=== PATIENT | female | born 1980 | race Caucasian/White ===

== ENCOUNTER → 2016-10-19 | Outpatient (CLI) | payer BC ==
[~2016-10-19] MED LIST: ACET-1311; CALC500C3; PRENTAB26
== END | disposition home or self-care (01) ==
LOC: C.PAPS 09:36
PROVIDERS: ATTEND Obstetrics & Gynecology
DX: Z01.419 Encounter for gynecological examination (general) (routine) without abnormal findings (principal)

== ENCOUNTER → 2016-10-27 | Outpatient (CLI) | payer BC ==
--- NOTE | 2016-10-27 12:25 | MAMMOGRAPHY REPORT ---
BILATERAL DIGITAL DIAGNOSTIC MAMMOGRAM TOMOSYNTHESIS WITH CAD AND TARGETED RIGHT ULTRASOUND: 10/27/2016 CLINICAL HISTORY: The patient reports she had 3 adjacent nodules in the right axillary region approxi mately 1.5 months ago. She was placed on 2 rounds of antibiotics and 2 of the nodules resolved, lott andrés, one nodule still persists. The area is intermittently painful. She denies any skin erythema in the region. She has a history of a prior left axillary abscess. TECHNIQUE: Breast tomosynthesis in addition to standard 2D mammography was performed. Current study was also evaluated with a Computer Aided Detection (CAD) system. Bilateral CC and MLO 2-D and tomosy nthesis images were obtained. Right X CCM and right X CCL 2-D images were also obtained. COMPARISON: No prior exams were available for comparison. BREAST COMPOSITION: There are scattered areas of fibroglandular density in both breasts. FINDINGS: A triangle marker partially visualized within the right axillary region mccallum the palpable lump pointed out by the patient. There are no suspicious masses, calcifications, or areas of idris ectural distortion noted within either breast. A few scattered punctate/round benign-appearing calci fications are seen within the right breast. Targeted ultrasound was performed of the area of the palpable lump pointed out by the patient in the right axillary region. At the site of the palpable lump there is an ill-defined elongated hypoechoic region in the dermal/subdermal region, measuring 21 x 2 mm. Findings are benign and may represent a resolving sebaceous cyst or other process involving the skin. No focal fluid collection is evident to suggest abscess. IMPRESSION: ACR BI-RADS CATEGORY 2: BENIGN, TARGETED ULTRASOUND ACR BI-RADS CATEGORY 2: BENIGN Ill-defined elongated hypoechoic 21 x 2 mm region at the site of the palpable lump in the right axill a. This is located in the dermal/subdermal region and is benign and may represent a resolving sebace ous cyst or other skin process. No focal fluid collection to suggest abscess is seen. There is no m ammographic or targeted sonographic evidence of malignancy. Recommend clinical follow-up for the rig ht axillary palpable lump, and recommend routine bilateral screening mammograms starting at age of 40 unless otherwise clinically indicated. The patient has been verbally notified of the results. Approximately 10% of breast cancers are not detected with mammography. A negative mammographic report should not delay biopsy if a clinically suggestive mass is present. Latisha Sue M.D. ah/:10/27/2016 11:51:46 Emergency Dept Tech: Lashonda RENEE(Shirley)(M), [facility] letter sent: Normal 1/2 BI-RADS Code: ACR BI-RADS Category 2: Benign Ultrasound BI-RADS: ACR BI-RADS Category 2: Benign
== END | disposition home or self-care (01) ==
LOC: C.MAMM 08:58
PROVIDERS: ATTEND Obstetrics & Gynecology
DX: N63 Unspecified lump in breast (principal)

== ENCOUNTER 2024-06-26 18:08 | Inpatient (IN) ==
--- NOTE | 2024-06-26 18:57 | Emergency Department Note ---
History of Present Illness General Chief complaint: Skin Problem Stated complaint: PINE NEEDLE DEBRIS COMING THROUGH INFECTED STITCHE Time Seen by Provider: 06/26/24 18:30 History of Present Illness Maximum Pain Intensity: 4 This is a 43-year-old female that presents to the emergency department via private vehicle with complaints of "left knee infection". The patient notes that this past Sunday she was hiking at [employer] and states that she fell a few times and one of the falls involved her causing a laceration to the left knee. She then had a hike about 2.[address] of the [facility] and then presented to a local facility for assessment. She states that the left knee was repaired. Tetanus vaccine was not updated. She was placed on oral cephalexin. She notes this and x-rays were also performed. She then reached out to her PCP the following day on Sunday and doxycycline was added to the Keflex regimen noting the start of erythema and edema to the knee joint. She notes ongoing left knee pain, erythema and edema. She states that a few pieces of leaf debris and pine needles have been protruding from the sutured wound which she has removed. When she flex the left knee today some purulence/fluid was expressed from the knee. No fevers or chills. She also notes continued pain in the right hand area and left hip status post fall. She notes she is otherwise healthy. No pertinent past medical history. No pertinent surgeries. Allergies to lisinopril and sulfa drugs. Home Medications Medication Instructions Recorded Confirmed Type cephalexin 500 mg capsule 500 mg PO Q8 06/26/24 06/26/24 History dextroamphetamine-amphetamine 10 10 mg PO BID 06/26/24 06/26/24 History mg tablet doxycycline monohydrate 100 mg 100 mg PO BID 06/26/24 06/26/24 History capsule Allergies Allergy/AdvReac Type Severity Reaction Status Date / Time lisinopril Allergy Drowsy Verified 06/26/24 19:07 Sulfa (Sulfonamide Allergy Verified 06/27/24 00:11 Antibiotics) Past Med/Surg History Problem List (Updated 06/27/24 @ 00:18 by Jalil Blackmon PA-C) Hip pain, left (Acute) Hand pain, right (Acute) Fall (Acute) Infection of left knee (Acute) Medical History (Updated 06/27/24 @ 00:18 by Jalil Blackmon PA-C) Anxiety Attention deficit disorder (ADD) Surgical History History of dilatation and curettage X3 FOR MISCARRIAGES History of colonoscopy History of tooth extraction 3 WISDOM TEETH AND MOLAR History of cholecystectomy History of tonsillectomy Social History Smoking Status: Never smoker Cigarettes Per Day: 1 PPD; Second Hand Exposure: No; Do You Dip or Chew Tobacco: Yes; Hx Alcohol Use: No Hx Substance Use: No Preferred Language: Bolivian Communication Ability: Effective [employer] Required: No Beliefs That Will Affect Care: None Current Living Situation: Spouse Feels Safe at Home: Yes Assistive Devices: Glasses Review of Systems A total of 10 systems reviewed and were otherwise negative Physical Exam Vital Signs Vital Signs - 24 hr 06/26/24 18:08 06/26/24 18:11 06/26/24 18:55 Temperature 36.9 C Temperature Source Oral Pulse Rate 112 H 96 H Pulse Rate from SpO2 Sensor Pulse Rhythm Regular Pulse Strength Normal Respiratory Rate 18 18 Respiratory Effort / Characteristics Non-Labored Respiratory Depth Normal Respiratory Pattern Regular Blood Pressure 105/74 Blood Pressure Mean 84 Blood Pressure Position Sitting Pulse Oximetry 100 Oxygen Delivery Method Room Air Sepsis Recent Fever Within 48 Hours No Sepsis New/Unexplained Change in Mental Status N/A Sepsis Action Taken by Nursing No Action Required 06/26/24 19:05 06/26/24 19:21 06/26/24 19:30 Temperature Temperature Source Pulse Rate 96 H 86 88 Pulse Rate from SpO2 Sensor 94 H 86 88 Pulse Rhythm Pulse Strength Respiratory Rate 14 20 20 Respiratory Effort / Characteristics Respiratory Depth Respiratory Pattern Blood Pressure 104/55 L 107/64 Blood Pressure Mean 71 70 Blood Pressure Position Pulse Oximetry 99 99 99 Oxygen Delivery Method Room Air Room Air Room Air Sepsis Recent Fever Within 48 Hours Sepsis New/Unexplained Change in Mental Status Sepsis Action Taken by Nursing 06/26/24 19:30 06/26/24 19:30 06/26/24 20:02 Temperature Temperature Source Pulse Rate 83 Pulse Rate from SpO2 Sensor 86 Pulse Rhythm Pulse Strength Respiratory Rate 21 Respiratory Effort / Characteristics Respiratory Depth Respiratory Pattern Blood Pressure 107/64 107/64 109/65 Blood Pressure Mean 70 70 79 Blood Pressure Position Pulse Oximetry 97 Oxygen Delivery Method Room Air Sepsis Recent Fever Within 48 Hours Sepsis New/Unexplained Change in Mental Status Sepsis Action Taken by Nursing 06/26/24 20:10 06/26/24 20:14 Temperature Temperature Source Pulse Rate 85 79 Pulse Rate from SpO2 Sensor 86 80 Pulse Rhythm Pulse Strength Respiratory Rate 20 19 Respiratory Effort / Characteristics Respiratory Depth Respiratory Pattern Blood Pressure 119/67 Blood Pressure Mean 75 Blood Pressure Position Pulse Oximetry 97 100 Oxygen Delivery Method Room Air Room Air Sepsis Recent Fever Within 48 Hours Sepsis New/Unexplained Change in Mental Status Sepsis Action Taken by Nursing VITAL SIGNS - Vital signs and nursing notes were reviewed. Tachycardic, otherwise stable and afebrile. GENERAL - 43-year-old female appearing her stated age who is in no acute distress. Communicates well with provider and answers questions appropriately. SKIN -skin as further displayed in the pictures above. The left anterior knee is diffusely erythematous, edematous with a sutured V-shaped wound. Increased warmth noted to this region. HEAD - NC/AT. EYES - Sclera anicteric. NOSE - Midline and without cyanosis. MOUTH/OROPHARYNX - Without perioral cyanosis. NECK - Neck with FROM. No nuchal rigidity. LUNGS - CTA CARDIAC - RRR ABDOMEN - Abdominal contour normal without pulsations or visible masses. BS normoactive all four quadrants. No tenderness, palpable masses, hepatosplenomegaly, or ascites noted. EXTREMITIES - No clubbing or peripheral cyanosis. There is mild tenderness to the medial, proximal right hand region and wrist. Minimal tenderness to the left lateral hip region. Left anterior knee tender. Extremities are appropriately warm and perfused noting increased warmth in the left anterior knee. +5/5 strength noted in UE/LE bilaterally. NEUROLOGIC - Cranial nerves grossly intact PSYCH -alert, oriented and pleasant on exam Course Administered Medications Diphenhydramine HCl (Diphenhydramine Capsule 25 Mg Cap) 25 mg PO HS PRN PRN Reason: Insomnia Stop: 07/26/24 22:34 Last Admin: 06/26/24 23:33 Dose: 25 mg Documented By: TROY Lactated Ringer's (Lr) 1,000 mls @ 125 mls/hr IV .Q8H ASIYA Stop: 06/27/24 16:00 Last Admin: 06/26/24 23:38 Dose: 125 mls/hr Documented By: MLAva Piperacillin Sod/Tazobactam Sod (Zosyn) 4.5 gm in 100 mls @ 25 mls/hr IV Q8H ASIYA; Protocol Stop: 07/04/24 00:00 Last Admin: 06/26/24 23:38 Dose: 25 mls/hr Documented By: TROY Ibuprofen (Ibuprofen 600 Mg Tab) 600 mg PO QID ASIYA Stop: 07/26/24 22:31 Last Admin: 06/26/24 23:32 Dose: 600 mg Documented By: TROY Discontinued Medications Diphtheria/Pertussis/Tetanus Vacc (Diphther/Tetan/Pertus Vaccine (Tdap, Adol/Adult) 0.5ml) 0.5 ml IM .ONCE ONE Stop: 06/26/24 18:48 Last Admin: 06/26/24 19:09 Dose: 0.5 ml Documented By: JAVI Piperacillin Sod/Tazobactam Sod (Zosyn) 4.5 gm in 100 mls @ 200 mls/hr IV NOW ONE; Protocol Stop: 06/26/24 19:18 Last Infusion: 06/26/24 19:45 Dose: Infused Documented By: Admin: 06/26/24 19:07 Dose: 200 mls/hr Documented By: JAVI Sodium Chloride (Nss) 1,000 mls @ 999 mls/hr IV .Q1H1M ONE Stop: 06/26/24 20:00 Last Infusion: 06/26/24 20:32 Dose: Infused Documented By: Admin: 06/26/24 19:10 Dose: 999 mls/hr Documented By: JAVI Morphine Sulfate (Morphine Sulfate 2 Mg/Ml Carp) 2 mg IV NOW STA Stop: 06/26/24 20:03 Last Admin: 06/26/24 20:31 Dose: Not Given Documented By: JAVI Medical Decision Making Laboratory Data 06/26/24 18:54 06/26/24 18:54 Lab Results 06/26/24 06/26/24 Range/Units 18:54 19:24 WBC 14.51 H (4.8-10.8) K/ul RBC 4.62 (4.20-5.40) M/uL Hgb 14.0 (12.0-16.0) g/dl Hct 41.1 (37.0-47.0) % MCV 89.0 (80.0-100.0) fL MCH 30.3 (25.0-34.0) pg MCHC 34.1 (32.0-36.0) g/dL RDW Std Deviation 43.8 (36.4-46.3) fL RDW Coeff of Jenny 13.3 (11.5-14.5) % Plt Count 335 (130-400) K/uL MPV 9.5 (9.4-12.4) fL Immature Gran % (Auto) 0.8 % Neut % (Auto) 72.0 % Lymph % (Auto) 17.8 % [place] % (Auto) 7.9 % Eos % (Auto) 1.2 % Baso % (Auto) 0.3 % Neut # (Auto) 10.45 H (1.40-6.50) K/uL Lymph # (Auto) 2.59 (1.20-3.40) K/uL Pickens # (Auto) 1.15 H (0.11-0.59) K/uL Eos # (Auto) 0.17 (0.00-0.50) K/uL Baso # (Auto) 0.04 (0.00-0.20) K/uL Immature Gran # (Auto) 0.11 (0.01-0.20) K/uL ESR 48 H (0-20) mm/hr Sodium 138 (136-145) mmol/L Potassium 3.8 (3.5-5.1) mmol/L Chloride 103 (98-107) mmol/L Carbon Dioxide 29 (21-32) mmol/L Anion Gap 6 (3-11) BUN 21 (6-23) mg/dl Creatinine 0.57 L (0.6-1.2) mg/dl Est Cr Clr Drug Dosing 99.6 ml/min eGFR 114.85 BUN/Creatinine Ratio 36.8 H (10-20) Glucose 88 (70-99(Fasting)) mg/dl Lactate 0.6 (0.4-2.0) mmol/L Calcium 9.9 (8.6-10.3) mg/dl Total Bilirubin 0.4 (0.2-1.0) mg/dl AST 22 (13-39) U/L ALT 31 (7-52) U/L Alkaline Phosphatase 53 (34-104) U/L C-Reactive Protein 9.77 H (0-0.5) mg/dl Total Protein 7.7 (6.0-8.3) gm/dl Albumin 4.5 (3.4-5.0) gm/dl Globulin 3.2 (2.5-4.0) gm/dl Albumin/Globulin Ratio 1.4 (0.9-2) Procalcitonin < 0.02 (0-0.5) ng/ml HCG, Qual Negative (Negative) Imaging Data Radiologist's Impression: Femur X-Ray 06/26/24 18:47 Study: Left femur 2 views, left knee 2 views History: Pain Comparison: None Findings: There is no acute fracture or dislocation. Alignment is anatomic. Joint spaces are well maintained. Trace left knee joint effusion. Bone mineralization is normal. Impression: No acute bony abnormality of the left knee or femur. There is a trace joint effusion of the knee. Electronically signed by Last Wilcox 06-26-2024 7:21 PM Hand X-Ray 06/26/24 18:47 Study: Right wrist 4 views, right hand 3 views History: Pain Comparison: None Findings: There is no acute fracture or dislocation. Alignment is anatomic. Joint spaces are well maintained. There is no joint effusion or significant soft tissue swelling. Bone mineralization is normal. Impression: No acute bony abnormality Electronically signed by Last Wilcox 06-26-2024 7:21 PM Knee X-Ray 06/26/24 18:47 Study: Left femur 2 views, left knee 2 views History: Pain Comparison: None Findings: There is no acute fracture or dislocation. Alignment is anatomic. Joint spaces are well maintained. Trace left knee joint effusion. Bone mineralization is normal. Impression: No acute bony abnormality of the left knee or femur. There is a trace joint effusion of the knee. Electronically signed by Last Wilcox 06-26-2024 7:21 PM Pelvis X-Ray 06/26/24 18:47 Study: Pelvis 1 view History: Pain Comparison: None Findings: There is no acute fracture or dislocation. Alignment is anatomic. Joint spaces are well maintained. There is no joint effusion or significant soft tissue swelling. Bone mineralization is normal. Impression: No acute bony abnormality of the pelvis Electronically signed by Last Wilcox 06-26-2024 7:21 PM Wrist X-Ray 06/26/24 18:47 Study: Right wrist 4 views, right hand 3 views History: Pain Comparison: None Findings: There is no acute fracture or dislocation. Alignment is anatomic. Joint spaces are well maintained. There is no joint effusion or significant soft tissue swelling. Bone mineralization is normal. Impression: No acute bony abnormality Electronically signed by Last Wilcox 06-26-2024 7:21 PM MDM Narrative Patient was seen and evaluated as above in room a11B. Review was performed of triage nursing notes and vital signs. Patient presents to us today for evaluation of progressive erythema, edema and pain to the left knee joint status post fall and subsequent suture repair of the wound earlier this week. She is already on oral cephalexin and oral doxycycline. I did obtain verbal consent and imaging was obtained and uploaded into the EMR, specifically into the physical exam portion of this note. Please refer to the physical exam regarding findings and imaging. Options of care were discussed with the patient. IV access was established. Labs were drawn. Tetanus vaccine updated as the patient notes that this is out of date, and likely was about 15 years ago when she last had a tetanus vaccine. IV antibiotics ordered to include IV Zosyn as well as IV fluids. Labs reveal leukocytosis 14.51. No anemia. Procalcitonin and lactate are normal. hCG negative. Blood culture pending. I did obtain x-rays of the patient's right hand and wrist as well as left femur and pelvis in conjunction with the left knee to further assess areas of pain. I reviewed the imaging. Per my interpretation no fracture or dislocation. The patient does have findings concerning for that of infection to the left anterior knee region. This may require operative intervention such as reopening the wound and washout. 7:33 PMI spoke with Gwyn Shirley PA-C with orthopedics. Plan is for the IV antibiotics, admission to the medicine service and orthopedic consult. Case discussed with the hospitalist service. Please refer to further documentation regarding her stay. GCS: 15 In the evaluation and treatment of this patient the following differential diagnoses were entertained: Septic joint, prepatellar bursitis, cellulitis, abscess, retained foreign body/debris, among others Impression & Plan Infection of left knee, Fall, Hand pain, right, Hip pain, left Discharge Plan Visit Data Chief Complaint: Skin Problem Stated Complaint: PINE NEEDLE DEBRIS COMING THROUGH INFECTED STITCHE ED Provider: Joel Carver ED Midlevel Provider: Jalil Blackmon Discharge Problem: Infection of left knee, Fall, Hand pain, right, Hip pain, left Patient Disposition: Admitted As Inpatient Condition: Good Discharge Instructions Interventions: ED Discharge Assessment Last Done: 06/26/24 22:10
[2024-06-26] MEDS: PIPERACILLIN/TAZOBACTAM 4.5 GM/100 ML BAG IV ONE (19:07)
[2024-06-26] MEDS: DIPHTHER/TETAN/PERTUS Vaccine (Tdap, Adol/Adult) 0.5mL IM ONE (19:09)
[2024-06-26] MEDS: SODIUM CHLORIDE 0.9% 1,000 ML IV ONE (19:10)
[2024-06-26 19:15] LABS: Basophils # (auto) 0.04 K/uL (0.00-0.20); Basophils % (auto) 0.3 %; Eosinophils # (auto) 0.17 K/uL (0.00-0.50); Eosinophils % (auto) 1.2 %; Hematocrit (blood only) 41.1 % (37.0-47.0); Immature Granulocytes # (auto) 0.11 K/uL (0.01-0.20); Immature Granulocytes % (auto) 0.8 %; Lymphocytes # (auto) 2.59 K/uL (1.20-3.40); Lymphocytes % (auto) 17.8 %; Mean Corpuscular Hemoglobin 30.3 pg (25.0-34.0); Mean Corpuscular Hgb Conc 34.1 g/dL (32.0-36.0); Mean Platelet Volume 9.5 fL (9.4-12.4); Monocytes # (auto) 1.15 K/uL (0.11-0.59); Monocytes % (auto) 7.9 %; Neutrophils # (auto) 10.45 K/uL (1.40-6.50); Platelet Count 335 K/uL (130-400); RDW Coefficient of Variation 13.3 % (11.5-14.5); RDW Standard Deviation 43.8 fL (36.4-46.3); Red Blood Count 4.62 M/uL (4.20-5.40); White Blood Count 14.51 K/ul (4.8-10.8)
--- NOTE | 2024-06-26 19:21 | XRay Report ---
Study: Right wrist 4 views, right hand 3 views History: Pain Comparison: None Findings: There is no acute fracture or dislocation. Alignment is anatomic. Joint spaces are well maintained. There is no joint effusion or significant soft tissue swelling. Bone mineralization is normal. Impression: No acute bony abnormality Electronically signed by Last Wilcox 06-26-2024 7:21 PM
--- NOTE | 2024-06-26 19:21 | XRay Report ---
Study: Left femur 2 views, left knee 2 views History: Pain Comparison: None Findings: There is no acute fracture or dislocation. Alignment is anatomic. Joint spaces are well maintained. Trace left knee joint effusion. Bone mineralization is normal. Impression: No acute bony abnormality of the left knee or femur. There is a trace joint effusion of the knee. Electronically signed by Last Wilcox 06-26-2024 7:21 PM
--- NOTE | 2024-06-26 19:21 | XRay Report ---
Study: Pelvis 1 view History: Pain Comparison: None Findings: There is no acute fracture or dislocation. Alignment is anatomic. Joint spaces are well maintained. There is no joint effusion or significant soft tissue swelling. Bone mineralization is normal. Impression: No acute bony abnormality of the pelvis Electronically signed by Last Wilcox 06-26-2024 7:21 PM
[2024-06-26 19:32] LABS: Pregnancy Test, Serum Negative (Negative)
[2024-06-26 19:33] LABS: Albumin Globulin Ratio 1.4 (0.9-2); Albumin Level 4.5 gm/dl (3.4-5.0); BUN Creatinine Ratio 36.8 (10-20); Bilirubin,Total 0.4 mg/dl (0.2-1.0); Calcium 9.9 mg/dl (8.6-10.3); Creatinine Clr Calc Pharmacy 99.6 ml/min; Globulin 3.2 gm/dl (2.5-4.0); Potassium 3.8 mmol/L (3.5-5.1); Total Protein 7.7 gm/dl (6.0-8.3)
[2024-06-26] MEDS: MoRPHine SULFATE 2 MG/ML CARP IV STA (20:31)
--- NOTE | 2024-06-26 20:32 | History & Physical Report ---
Date of Service June 26, 2024 Assessment & Plan (1) Infection of left knee: Plan 43yo female with laceration to left knee on 06/23/24 s/p washout with closure performed at an outside facility. Patient had been on Keflex following the injury, on Keflex + Doxy currently since 06/25/24. Progressive redness and swelling with purulence expressed today containing pine needles and debris presumably from inappropriate wash-out prior to closure. Patient afebrile, hemodynamically stable and does not appear systemically ill. Bedside arthrocentesis did not yield joint aspirate. #Infection of left knee -Admit to medical -Follow blood cultures sent from ER -Tetanus vaccination administered -Keep NPO after midnight for possible OR with washout tomorrow -LR at 125mL/hr x 2L -Continue zosyn -Appreciate Orthopedic surgery assistance -Tylenol PRN -Ibuprofen PRN -Zofran PRN F/E/N- LR at 125mL/hr x 2L, electrolytes WNL, NPO after midnight Ppx - Low risk for DVT Code - Full Dispo - Admit to medical History of Present Illness Chief Complaint: left knee pain Primary Care Provider: Rober Martell MD Bere Gee is a pleasant 43yo female presenting with infection of left knee pain, swelling. On Sunday06/23/24 the [place] She [place] and sustained a laceration to the left knee. She had to hike over 2 miles to get to her car and fell several more times on the way. he was seen at a local ER and had her knee washed out with sutures placed. She was given oral Keflex on discharge. Did not receive a tetanus vaccine. On Sunday06/24/24 patient noticed worsening redness and pain in her urine. She was seen by her PCP and was given doxycycline in addition to continuing the Keflex. She started her Keflex on Sunday06/26/24. Patient noted continued pain, redness and swelling. Today she had some drainage from the wound - found to have pine needles came out of her wound. She contacted the ER where he received the stitches and was told "that was to be expected". Patient came to [facility] for evaluation. She denies fever, chills, nausea, vomiting. No additional complaints at this time. In the ER patient is afebrile, hemodynamically stable and nontoxic in appearance. She was assessed by Ortho surgery at bedside and had an arthrocentesis performed with no fluid aspirated from the left knee. ER course: Zosyn Normal saline Allergies Allergy/AdvReac Type Severity Reaction Status Date / Time lisinopril Allergy Drowsy Verified 06/26/24 19:07 Home Medications Medication Instructions Recorded Confirmed Type cephalexin 500 mg capsule 500 mg PO Q8 06/26/24 06/26/24 History dextroamphetamine-amphetamine 10 10 mg PO BID 06/26/24 06/26/24 History mg tablet doxycycline monohydrate 100 mg 100 mg PO BID 06/26/24 06/26/24 History capsule Past Med/Surg History Problem List (Updated 06/26/24 @ 23:32 by Radha Eller DO) Infection of left knee Medical History (Updated 06/26/24 @ 23:32 by Radha Eller DO) Anxiety Attention deficit disorder (ADD) Surgical History History of dilatation and curettage X3 FOR MISCARRIAGES History of colonoscopy History of tooth extraction 3 WISDOM TEETH AND MOLAR History of cholecystectomy History of tonsillectomy Social History Smoking Status: Former smoker Cigarettes Per Day: 1 PPD; Second Hand Exposure: No; Do You Dip or Chew Tobacco: Yes; Hx Alcohol Use: No Hx Substance Use: No Preferred Language: Pakistani Communication Ability: Effective Auxiliary Engineer Required: No Beliefs That Will Affect Care: None Current Living Situation: Spouse Feels Safe at Home: Yes Assistive Devices: Glasses Review of Systems Review of Systems: All systems reviewed & are unremarkable except as noted in HPI & below Physical Exam Physical Exam: General: patient resting comfortably, NAD, non-toxic in appearance, AA&O x 4 Skin: warm, dry, intact, no rashes or lesions HEENT: NC/AT, PERRL, EOMI, anicteric sclera, conjunctiva without injection, external ear normal to inspection and nontender, nares patent, moist mucus membranes, dentition intact, no oropharyngeal lesions, neck supple, trachea midline, no LAD, no thyromegaly, no JVD Heart: +S1/S2, regular, no m/r/g Lungs: equal air entry bilaterally, no rales/rhonchi/wheezes Abd: +BS, soft, NT/ND, no masses/organomegaly/ascites Ext: left knee with sutures in place, surrounding erythema, no purulence expressed on my exam Neuro: nonfocal, patient AA&O x 4, speech intact, no facial droop, moving all extremities on command with equal strength 5/5 Results & Data Results & Data Vital Signs (Past 12 Hours) Vital Signs Temp Pulse Resp BP Pulse Ox O2 Del Method 06/26/24 20:10 85 20 119/67 97 Room Air 06/26/24 20:02 83 21 109/65 97 Room Air 06/26/24 19:30 107/64 06/26/24 19:30 107/64 06/26/24 19:30 88 20 107/64 99 Room Air 06/26/24 19:21 86 20 99 Room Air 06/26/24 19:05 96 H 14 104/55 L 99 Room Air 06/26/24 18:55 96 H 06/26/24 18:11 36.9 C 112 H 18 105/74 100 Room Air 06/26/24 18:08 18 Laboratory Results Laboratory Results WBC 14.51 K/ul (4.8-10.8) H 06/26/24 18:54 RBC 4.62 M/uL (4.20-5.40) 06/26/24 18:54 Hgb 14.0 g/dl (12.0-16.0) 06/26/24 18:54 Hct 41.1 % (37.0-47.0) 06/26/24 18:54 MCV 89.0 fL (80.0-100.0) 06/26/24 18:54 MCH 30.3 pg (25.0-34.0) 06/26/24 18:54 MCHC 34.1 g/dL (32.0-36.0) 06/26/24 18:54 RDW Std Deviation 43.8 fL (36.4-46.3) 06/26/24 18:54 RDW Coeff of Jenny 13.3 % (11.5-14.5) 06/26/24 18:54 Plt Count 335 K/uL (130-400) 06/26/24 18:54 MPV 9.5 fL (9.4-12.4) 06/26/24 18:54 Immature Gran % (Auto) 0.8 % 06/26/24 18:54 Neut % (Auto) 72.0 % 06/26/24 18:54 Lymph % (Auto) 17.8 % 06/26/24 18:54 Vermilion % (Auto) 7.9 % 06/26/24 18:54 Eos % (Auto) 1.2 % 06/26/24 18:54 Baso % (Auto) 0.3 % 06/26/24 18:54 Neut # (Auto) 10.45 K/uL (1.40-6.50) H 06/26/24 18:54 Lymph # (Auto) 2.59 K/uL (1.20-3.40) 06/26/24 18:54 Vermilion # (Auto) 1.15 K/uL (0.11-0.59) H 06/26/24 18:54 Eos # (Auto) 0.17 K/uL (0.00-0.50) 06/26/24 18:54 Baso # (Auto) 0.04 K/uL (0.00-0.20) 06/26/24 18:54 Immature Gran # (Auto) 0.11 K/uL (0.01-0.20) 06/26/24 18:54 ESR 48 mm/hr (0-20) H 06/26/24 18:54 Sodium 138 mmol/L (136-145) 06/26/24 18:54 Potassium 3.8 mmol/L (3.5-5.1) 06/26/24 18:54 Chloride 103 mmol/L (98-107) 06/26/24 18:54 Carbon Dioxide 29 mmol/L (21-32) 06/26/24 18:54 Anion Gap 6 (3-11) 06/26/24 18:54 BUN 21 mg/dl (6-23) 06/26/24 18:54 Creatinine 0.57 mg/dl (0.6-1.2) L 06/26/24 18:54 Est Cr Clr Drug Dosing 99.6 ml/min 06/26/24 18:54 eGFR 114.85 06/26/24 18:54 BUN/Creatinine Ratio 36.8 (10-20) H 06/26/24 18:54 Glucose 88 mg/dl (70-99(Fasting)) 06/26/24 18:54 Lactate 0.6 mmol/L (0.4-2.0) 06/26/24 19:24 Calcium 9.9 mg/dl (8.6-10.3) 06/26/24 18:54 Total Bilirubin 0.4 mg/dl (0.2-1.0) 06/26/24 18:54 AST 22 U/L (13-39) 06/26/24 18:54 ALT 31 U/L (7-52) 06/26/24 18:54 Alkaline Phosphatase 53 U/L (34-104) 06/26/24 18:54 C-Reactive Protein 9.77 mg/dl (0-0.5) H 06/26/24 18:54 Total Protein 7.7 gm/dl (6.0-8.3) 06/26/24 18:54 Albumin 4.5 gm/dl (3.4-5.0) 06/26/24 18:54 Globulin 3.2 gm/dl (2.5-4.0) 06/26/24 18:54 Albumin/Globulin Ratio 1.4 (0.9-2) 06/26/24 18:54 Procalcitonin < 0.02 ng/ml (0-0.5) 06/26/24 18:54 HCG, Qual Negative (Negative) 06/26/24 18:54 Impressions Femur X-Ray 06/26/24 18:47 Study: Left femur 2 views, left knee 2 views History: Pain Comparison: None Findings: There is no acute fracture or dislocation. Alignment is anatomic. Joint spaces are well maintained. Trace left knee joint effusion. Bone mineralization is normal. Impression: No acute bony abnormality of the left knee or femur. There is a trace joint effusion of the knee. Electronically signed by Last Wilcox 06-26-2024 7:21 PM Hand X-Ray 06/26/24 18:47 Study: Right wrist 4 views, right hand 3 views History: Pain Comparison: None Findings: There is no acute fracture or dislocation. Alignment is anatomic. Joint spaces are well maintained. There is no joint effusion or significant soft tissue swelling. Bone mineralization is normal. Impression: No acute bony abnormality Electronically signed by Last Wilcox 06-26-2024 7:21 PM Knee X-Ray 06/26/24 18:47 Study: Left femur 2 views, left knee 2 views History: Pain Comparison: None Findings: There is no acute fracture or dislocation. Alignment is anatomic. Joint spaces are well maintained. Trace left knee joint effusion. Bone mineralization is normal. Impression: No acute bony abnormality of the left knee or femur. There is a trace joint effusion of the knee. Electronically signed by Last Wilcox 06-26-2024 7:21 PM Pelvis X-Ray 06/26/24 18:47 Study: Pelvis 1 view History: Pain Comparison: None Findings: There is no acute fracture or dislocation. Alignment is anatomic. Joint spaces are well maintained. There is no joint effusion or significant soft tissue swelling. Bone mineralization is normal. Impression: No acute bony abnormality of the pelvis Electronically signed by Last Wilcox 06-26-2024 7:21 PM Wrist X-Ray 06/26/24 18:47 Study: Right wrist 4 views, right hand 3 views History: Pain Comparison: None Findings: There is no acute fracture or dislocation. Alignment is anatomic. Joint spaces are well maintained. There is no joint effusion or significant soft tissue swelling. Bone mineralization is normal. Impression: No acute bony abnormality Electronically signed by aLst Wilcox 06-26-2024 7:21 PM PG Care Time/CCT Total # of Minutes Spent Total Time Spent with Patient: Total time spent is greater than 50% in coordination of care (as documented) at patient's floor/unit and/or counseling patient: Coding Level of Care Code 18242 INT INP/OBS CARE 3/75MIN Diagnoses Infection of left knee M00.9
--- NOTE | 2024-06-26 21:44 | Orthopedic Consultation ---
Date of Service June 26, 2024 History of Present Illness Reason for Consultation: Cellulitis left knee. Requesting Physician: . 43-year-old female presents to the emergency room today on June 26, she reports that she was hiking on June 23, had a fall and hiked out of the [place] and went to the emergency room in [place]. There she was evaluated, and underwent treatment for a laceration to her left knee anteriorly. She was given some antibiotics, but noted the following day developing some erythema around the site, she was also evaluated by her primary care physician and switched to a different antibiotic. Yesterday she noted some additional materials still coming out of the laceration area which included what appeared to be pine needles or debris. Due to a continuation of the erythema without any improving on antibiotics she presented to the emergency room. Exam of the left knee reveals her to have a inverted V shaped laceration with the cephalad most tip in the region of the inferior aspect of the patella, approximately 7 to 8 cm in length. No purulence is noted, there is diffuse erythema surrounding the knee going cephalad to the superior aspect of the knee joint, out laterally and medially and inferiorly approximately another 5 to 8 cm. There does not appear to be any effusion involving the knee joint. Patient can flex and extend the knee without any significant undue pain, the patella can be manipulated without any significant symptomatology. Otherwise neurovascularly intact. Radiographs of the left knee, femur, right wrist and right hand are unrevealing for any fracture subluxation or dislocation. WBC - 14.51. Impression: Left knee cellulitis 3 days out from laceration and debridement and washout and also secondary reevaluation at another emergency room. Plan: An aspiration of the left knee was attempted, I did not obtain any fluid from the left knee. I discussed with the patient and her that I do believe the laceration site should undergo a thorough irrigation and debridement in the operating room which will be performed the following day, possible secondary closure to address the cellulitis. Antibiotics will be continued. Allergies Allergy/AdvReac Type Severity Reaction Status Date / Time lisinopril Allergy Drowsy Verified 06/26/24 19:07 Home Medications Medication Instructions Recorded Confirmed Type cephalexin 500 mg capsule 500 mg PO Q8 06/26/24 06/26/24 History dextroamphetamine-amphetamine 10 10 mg PO BID 06/26/24 06/26/24 History mg tablet doxycycline monohydrate 100 mg 100 mg PO BID 06/26/24 06/26/24 History capsule Past Med/Surg History Problem List (Updated 12/02/19 @ 13:16 by Arthur Pena MD) Encounter for pre-operative examination Obesity Medical History (Updated 12/02/19 @ 13:16 by Arthur Pena MD) Anxiety Attention deficit disorder (ADD) Surgical History History of dilatation and curettage X3 FOR MISCARRIAGES History of colonoscopy History of tooth extraction 3 WISDOM TEETH AND MOLAR History of cholecystectomy History of tonsillectomy Social History (System 11/06/19 @ 15:53 by Tawana Bird) Smoking Status: Former smoker Cigarettes Per Day: 1 PPD; Second Hand Exposure: No; Do You Dip or Chew Tobacco: Yes; Hx Alcohol Use: No Hx Substance Use: No Preferred Language: Citizen Of [place] Communication Ability: Effective Medical Insurance Biller Required: No Beliefs That Will Affect Care: None Current Living Situation: Spouse Feels Safe at Home: Yes Assistive Devices: Glasses Review of Systems All systems reviewed & are unremarkable except as noted in HPI & below. Physical Exam . Results & Data Results & Data Laboratory Results . Diagnostic Findings . PG Care Time/CCT Total # of Minutes Spent Total Time Spent with Patient: Total time spent is greater than 50% in coordination of care (as documented) at patient's floor/unit and/or counseling patient: Coding Level of Care Code 52555 IN/OBS CONSULT LVL 3,45M
[2024-06-26 21:53] LABS: C Reactive Protein 9.77 mg/dl (0-0.5)
[2024-06-26] MEDS ORDERED: ONDANSETRON INJ 2 MG/ML 2 ML VIAL IV PRN (22:32)
[2024-06-26] MEDS: IBUPROFEN 600 MG TAB PO SCH (23:32)
[2024-06-26] MEDS: diphenhydrAMINE Capsule 25 MG CAP PO PRN (23:33)
[2024-06-26] MEDS: PIPERACILLIN/TAZOBACTAM 4.5 GM/100 ML BAG IV SCH (23:38)
[2024-06-26] MEDS: LACTATED RINGER'S 1,000 ML IV SCH (23:38)
[2024-06-27] MEDS: ACETAMINOPHEN 325 MG TAB PO PRN (09:11)
--- NOTE | 2024-06-27 12:51 | Hospitalist Progress Note ---
Date of Service June 27, 2024 Assessment & Plan (1) Infection of left knee: Plan: Post traumatic laceration of the left knee prepatellar space. She will undergo washout procedure later today, June 27, by orthopedic surgery. She remains on intravenous Zosyn, day 2. Continue IV fluids for now while she is n.p.o. Plan Anticipate eventual discharge back to home on oral antibiotics within the next day or 2 Admission and Anticipated Discharge Date Admission Date: June 26, 2024 Subjective Alert and oriented. Awaiting orthopedic surgical procedure on left knee infected laceration. She remains on Zosyn, day 2 Review of Systems 2 Review of Systems: Constitutionalno fever or chills ENTno blurred vision, no double vision, no epistaxis, no sore throat Respiratoryno cough, no wheezing, no shortness of breath Cardiacno palpitations, no chest pain, no syncope Sandra nausea, vomiting, diarrhea, melena, hematochezia GUno urinary retention, no urinary incontinence, no dysuria, no hematuria Musculoskeletalleft knee swelling/erythema/discomfort . Sutured V shaped laceration in the prepatellar area left knee Skinno bruising, no rashes, no pruritus Neurono isolated weakness, no paresthesia Psychno depression, no anxiety Physical Exam 2 Physical Exam: General-alert and oriented x3, no fever, no chills HEENT-head atraumatic and normocephalic, pupils equal and reactive to light, extraocular muscles intact Neck-no lymphadenopathy or thyromegaly, trachea midline Chest-clear to auscultation. No rales, wheezing or rhonchi Cardiac-regular rate and rhythm, normal S1 and S2 Abdomen-normal bowel sounds, no hepatosplenomegaly Extremities-left knee prepatellar V-shaped laceration is sutured. She has swelling erythema and tenderness about the left knee Neuro-cranial nerves II through XII intact, motor and sensory function within normal limits, strength symmetrical, no focal deficits Psych-normal affect, normal mood Results & Data Results & Data Vital Signs (Past 12 Hours) Vital Signs Temp Pulse Resp BP Pulse Ox O2 Del Method 06/27/24 08:35 36.7 C 82 14 97/62 L 98 Room Air Laboratory Results 06/26/24 18:54 06/26/24 18:54 PG Care Time/CCT Total # of Minutes Spent Total Time Spent with Patient: Total time spent is greater than 50% in coordination of care (as documented) at patient's floor/unit and/or counseling patient: Coding Level of Care Code 12639 SUB INP/OBS CARE MIN Diagnoses Infection of left knee M00.9
[2024-06-27] MEDS ORDERED: PROPOFOL IV EMULSION 10 MG/ML 20 ML VIAL IV ONE (14:29)
[2024-06-27] MEDS ORDERED: fentaNYL citrate PF 100 MCG/2 ML VIAL ONE (14:29)
[2024-06-27] MEDS ORDERED: LIDOCAINE 2% 2 ML VIAL/AMP(20MG/ML) INFIL ONE (14:29)
[2024-06-27] MEDS ORDERED: MIDAZOLAM HCL 1 MG/ML 2ML VIAL ONE (14:29)
[2024-06-27] MEDS ORDERED: HYDROmorphone INJ 2 MG/ML SYR/VIAL IV PRN (14:30)
[2024-06-27] MEDS ORDERED: HYDROmorphone INJ 1 MG/ML SYRINGE IV PRN (14:30)
[2024-06-27] MEDS ORDERED: ATROPINE SULFATE 0.1 MG/ML 10ML SYR IV PRN (14:30)
[2024-06-27] MEDS ORDERED: ePHEDrine sulfate 50 MG/ML AMP IV PRN (14:30)
[2024-06-27] MEDS ORDERED: ONDANSETRON INJ 2 MG/ML 2 ML VIAL IV PRN ×2 (14:30→16:08)
--- NOTE | 2024-06-27 14:31 | Anesthesiology Consultation ---
Date of Service June 27, 2024 Assessment & Plan Chart Review Chart Review: Acceptable Risk for Surgery Consults Requested none ASA ASA2 Proposed Anesthesia Anesthesia Type: General History Surgery Operation Date: 06/27/24 08:30 Proposed Procedures p Left Knee Incision and Drainage - Amado Gomez MD Height/Weight Height: 5 ft 2 in Weight: 58.604 kg Allergies Allergy/AdvReac Type Severity Reaction Status Date / Time lisinopril Allergy Drowsy Verified 06/27/24 13:58 Sulfa (Sulfonamide Allergy Verified 06/27/24 13:58 Antibiotics) Medications Home Medications Medication Instructions Recorded Confirmed Last Taken cephalexin 500 mg capsule 500 mg PO Q8 06/26/24 06/26/24 Unknown dextroamphetamine-amphetamine 10 10 mg PO BID 06/26/24 06/26/24 Unknown mg tablet doxycycline monohydrate 100 mg 100 mg PO BID 06/26/24 06/26/24 Unknown capsule Active Medications Generic Name Dose Route Start Last Admin Trade Name Freq PRN Reason Stop Dose Admin Acetaminophen 650 mg 06/26/24 22:32 06/27/24 13:35 Acetaminophen 325 Mg Tab PO 07/26/24 22:31 650 mg Q4H PRN Administration Pain or Fever Diphenhydramine HCl 25 mg 06/26/24 22:35 06/26/24 23:33 Diphenhydramine Capsule 25 Mg Cap PO 07/26/24 22:34 25 mg HS PRN Administration Insomnia Lactated Ringer's 1,000 mls @ 80 mls/hr 06/27/24 00:01 06/27/24 14:09 Lr IV 06/27/24 20:17 0 mls/hr .[id number] ASIYA Infusion Piperacillin Sod/Tazobactam Sod 4.5 gm in 100 mls @ 25 mls/hr 06/27/24 00:00 06/27/24 13:40 Zosyn IV 07/04/24 00:00 Infused Q8H ASIYA Infusion Protocol Ibuprofen 600 mg 06/26/24 22:32 06/27/24 13:35 Ibuprofen 600 Mg Tab PO 07/26/24 22:31 600 mg QID ASIYA Administration NPO Date Last Intake of Fluids: 06/27/24 Time Last Intake of Fluids: 00:00 Date Last Intake of Solids: 06/26/24 Time Last Intake of Solids: 23:30 Last Intake of Solids Comment: Greater then 8 hrs Past Medical History Medical History (Updated 06/27/24 @ 00:18 by Jalil Blackmon PA-C) Anxiety Attention deficit disorder (ADD) Exercise / Class Metabolic Activity 1 > 8 Run/Swim/Ski/Tennis Past Surgical History Surgical History History of dilatation and curettage X3 FOR MISCARRIAGES History of colonoscopy History of tooth extraction 3 WISDOM TEETH AND MOLAR History of cholecystectomy History of tonsillectomy Past Anesthesia History No Hx of Anesthesia Complications History of PONV No Hx of PONV and No Hx of Motion Sickness Social History Smoking Status: Never smoker tobacco type: cigarettes Smoking cigarettes per day: 1 PPD Do You Dip or Chew Tobacco: Yes Hx Alcohol Use: No Hx Substance Use: No substance use type: does not use Physical Exam Vital Signs Last Vital Signs Temp 36.5 C 06/27/24 13:58 Pulse 79 06/27/24 13:58 Resp 20 06/27/24 13:58 BP 110/77 06/27/24 13:58 Pulse Ox 99 06/27/24 13:58 O2 Del Method Room Air 06/27/24 13:58 Constitutional no acute distress ENMT Mouth: no dentition abnormality Thyromental Distance: > or= 3.5 Finger Breadths Mallampati Class: I Neck normal visual inspection Respiratory normal respiratory effort Auscultation: lungs clear to auscultation bilaterally Cardiovascular Rate/Rhythm: regular rate and regular rhythm Neurologic moves all extremities Psychiatric Orientation: alert and oriented x 3 Testing Laboratory Results 06/26/24 18:54 06/26/24 18:54
--- NOTE | 2024-06-27 14:48 | History & Physical Bridge Note ---
Date of Service June 27, 2024 History & Physical Bridge Note I have examined the patient, reviewed the History & Physical and in the interval since the performance of the History & Physical I have noted the following changes of clinical significance: no changes noted
[2024-06-27] MEDS ORDERED: PHENYLEPHRINE HCL 10 MG/ML VIAL ONE (15:09)
[2024-06-27] MEDS ORDERED: ePHEDrine sulfate 50 MG/5 ML SYR ONE (15:16)
[2024-06-27] MEDS: VANCOMYCIN HCL 1000MG/20ML VIAL ONE (15:51)
[2024-06-27] MEDS ORDERED: oxyCODONE/ACETAMINOPHEN 5mg/325mg TAB PO PRN ×2 (16:08)
[2024-06-27] MEDS ORDERED: HYDROmorphone HCL 2 MG TAB PO PRN (16:08)
[2024-06-27] MEDS: fentaNYL citrate PF 100 MCG/2 ML VIAL IV PRN (16:20)
--- NOTE | 2024-06-27 16:26 | Anesthesiology Progress Note ---
Date of Service June 27, 2024 Anesthesia Post Procedure Vital Signs Vital Signs: Temp Pulse Pulse Resp BP BP Pulse Ox 06/27/24 13:58 36.5 C 79 20 110/77 99 06/27/24 13:01 36.5 C 87 14 108/64 100 06/27/24 08:35 36.7 C 82 14 97/62 L 98 06/26/24 22:30 36.4 C L 133/87 97 06/26/24 22:30 36.4 C L 133/87 97 06/26/24 22:10 36.9 C 95 H 18 109/60 97 06/26/24 22:00 87 13 100 06/26/24 21:38 91 H 23 97 06/26/24 21:32 82/68 L 06/26/24 21:05 88 17 120/78 100 06/26/24 20:14 79 19 100 06/26/24 20:10 85 20 119/67 97 06/26/24 20:02 83 21 109/65 97 06/26/24 19:30 107/64 06/26/24 19:30 107/64 06/26/24 19:30 88 20 107/64 99 06/26/24 19:21 86 20 99 06/26/24 19:05 96 H 14 104/55 L 99 06/26/24 18:55 96 H 06/26/24 18:11 36.9 C 112 H 18 105/74 100 06/26/24 18:08 18 O2 Del Method 06/27/24 13:58 Room Air 06/27/24 13:01 Room Air 06/27/24 08:35 Room Air 06/26/24 22:30 Room Air 06/26/24 22:30 Room Air 06/26/24 22:10 Room Air 06/26/24 22:00 Room Air 06/26/24 21:38 Room Air 06/26/24 21:32 06/26/24 21:05 Room Air 06/26/24 20:14 Room Air 06/26/24 20:10 Room Air 06/26/24 20:02 Room Air 06/26/24 19:30 06/26/24 19:30 06/26/24 19:30 Room Air 06/26/24 19:21 Room Air 06/26/24 19:05 Room Air 06/26/24 18:55 06/26/24 18:11 Room Air 06/26/24 18:08 Pain Intensity Knee: Pain Intensity: 2 Transfer of Care Handoff Completed per policy Notes Mental Status: alert / awake / arousable Patient Amnestic to Procedure: Yes Nausea / Vomiting: adequately controlled Pain: adequately controlled Airway Patency, RR, SpO2: stable & adequate BP & HR: stable & adequate Hydration State: stable & adequate Anesthetic Complications: no major complications apparent and Pt Satisfied with anesthetic care
[2024-06-27] MEDS: HYDROCODONE/ACETAMOPHEN 5/325MG TAB PO PRN (17:12)
[2024-06-27 20:35] VITALS: RESP 16
[2024-06-28 03:28] VITALS: TEMP 98.1
[2024-06-28 06:16] LABS: Basophils # (auto) 0.03 K/uL (0.00-0.20); Basophils % (auto) 0.3 %; Eosinophils % (auto) 2.1 %; Hematocrit (blood only) 33.9 % (37.0-47.0); Hemoglobin 11.2 g/dl (12.0-16.0); Immature Granulocytes # (auto) 0.06 K/uL (0.01-0.20); Immature Granulocytes % (auto) 0.6 %; Lymphocytes # (auto) 2.59 K/uL (1.20-3.40); Lymphocytes % (auto) 27.2 %; Mean Corpuscular Hemoglobin 29.6 pg (25.0-34.0); Mean Corpuscular Volume 89.4 fL (80.0-100.0); Mean Platelet Volume 9.3 fL (9.4-12.4); Monocytes # (auto) 0.82 K/uL (0.11-0.59); Monocytes % (auto) 8.6 %; Neutrophils # (auto) 5.81 K/uL (1.40-6.50); Neutrophils % (auto) 61.2 %; Platelet Count 328 K/uL (130-400); RDW Coefficient of Variation 13.5 % (11.5-14.5); RDW Standard Deviation 44.3 fL (36.4-46.3); Red Blood Count 3.79 M/uL (4.20-5.40); White Blood Count 9.51 K/ul (4.8-10.8)
[2024-06-28 06:33] LABS: BUN Creatinine Ratio 31.2 (10-20); Creatinine Clr Calc Pharmacy 73.7 ml/min; Potassium 3.8 mmol/L (3.5-5.1)
[2024-06-28 07:35] VITALS: BP 98/65; O2SAT 98
--- NOTE | 2024-06-28 09:56 | Orthopedic Progress Note ---
Date of Service June 28, 2024 Subjective Patient seen and examined, she notes distinct improvement in terms of the pain in her left knee status post irrigation debridement and closure. Impression/plan: Postop day 1 from irrigation debridement of left knee infected laceration. The patient will be discharged home today, I reviewed with her utilizing the knee immobilizer, she can be weightbearing as tolerated and I discussed dressing change and when to shower. She will utilize her antibiotics at home, if they will be follow-up this coming week in the office. Review of Systems All systems reviewed & are unremarkable except as noted in HPI & below. Physical Exam . Results & Data Results & Data Laboratory Results . Diagnostic Findings . PG Care Time/CCT Total # of Minutes Spent Total Time Spent with Patient: Total time spent is greater than 50% in coordination of care (as documented) at patient's floor/unit and/or counseling patient: Coding Level of Care Code 82766 Post Operative Follow-Up
--- NOTE | 2024-06-28 10:55 | Discharge Summary ---
Discharge Summary Date of Service June 28, 2024 Principal Dx & Hospital Course #1 = Principal Diagnosis (1) Infection of left knee: Post traumatic laceration of the left knee prepatellar space. She underwent washout procedure yesterday, June 27, by orthopedic surgery. Postoperative day #1. She was treated while hospitalized with intravenous Zosyn, day 3. She will resume her Keflex and doxycycline orally at discharge. Follow-up with orthopedic surgery has been scheduled Plan Home today, June 28 Admission HPI Per Admitting Provider Bere Capri Gee is a pleasant 43yo female presenting with infection of left knee pain, swelling. On Sunday06/23/24 the [place] She [place] and sustained a laceration to the left knee. She had to hike over 2 miles to get to her car and fell several more times on the way. he was seen at a local ER and had her knee washed out with sutures placed. She was given oral Keflex on discharge. Did not receive a tetanus vaccine. On Sunday06/24/24 patient noticed worsening redness and pain in her urine. She was seen by her PCP and was given doxycycline in addition to continuing the Keflex. She started her Keflex on Sunday06/26/24. Patient noted continued pain, redness and swelling. Today she had some drainage from the wound - found to have pine needles came out of her wound. She contacted the ER where he received the stitches and was told "that was to be expected". Patient came to [facility] for evaluation. She denies fever, chills, nausea, vomiting. No additional complaints at this time. In the ER patient is afebrile, hemodynamically stable and nontoxic in appearance. She was assessed by Ortho surgery at bedside and had an arthrocentesis performed with no fluid aspirated from the left knee. ER course: Zosyn Normal saline Discharge Exam General-alert and oriented x3, no fever, no chills HEENT-head atraumatic and normocephalic, pupils equal and reactive to light, extraocular muscles intact Neck-no lymphadenopathy or thyromegaly, trachea midline Chest-clear to auscultation. No rales, wheezing or rhonchi Cardiac-regular rate and rhythm, normal S1 and S2 Abdomen-normal bowel sounds, no hepatosplenomegaly Extremities-left knee is bandaged and immobilized. Neuro-cranial nerves II through XII intact, motor and sensory function within normal limits, strength symmetrical, no focal deficits Psych-normal affect, normal mood Discharge Plan Discharge Items Patient Disposition: Home - Self-Care Reason For Visit: LEFT KNEE laceration, dirty Discharge Diagnosis: s/p I&D left knee Condition on Discharge: Good Activity: Per Instructions section Weightbearing: Full weightbearing Weightbearing Comment: w/ knee immobilizer on Non-emergency contact: Surgeon Call non-emergency contact if: your pain is not controlled, your wound has increased redness and your wound has increased drainage Follow-up/Referrals: Amado Gomez MD [Surgeon] - (call for appt. 2 weeks after surgery) Rober Martell MD [Primary Care Provider] - Diet: Regular Addtl Attending Provider Instructions: Maintain knee immobilizer (KI) to prevent knee flexion while wound heals; KI may come off for personal hygiene and dressing changes but knee to remain in full extension until further instructed. Sutures to remain in until seen for follow- up visit, which should not be prior to 2 weeks post-op. If you have not been given dressing instructions already, leave the surgical dressing intact until 06/30/24, then contact Dr. Gomez' team in the orthopedics clinic for further dressing instructions. Pending Studies at Discharge: No Stand-Alone Forms: My [facility] [employer] Smoking Cessation Medications and DC Order Prescriptions: New hydrocodone-acetaminophen 5-325 mg tablet 1 tab PO Q6H PRN (Reason: pain) Qty: 16 0RF Continued doxycycline monohydrate 100 mg capsule 100 mg PO BID Rx Instructions: ordered 06/24/24 for 10 days dextroamphetamine-amphetamine 10 mg tablet 10 mg PO BID cephalexin 500 mg capsule 500 mg PO Q8 Rx Instructions: ordered 06/23/24 for 7 days Discharge Orders: Discharge Order (Routine); Ordered 06/28/24 Ordered By: Eduardo Estrada Admission Data Admit Date/Time: 06/26/24 20:31 Attending Provider: Eduardo Estrada Admit Provider: Radha Eller Primary Care Provider: Rober Martell Other Providers: Radha Eller; Amado Gomez Hospital Stay Data Consultations 06/26/24 19:53 ED Decision to Admit Stat 06/26/24 20:31 Consult Orthopedic Surgery Routine Procedures Performed Operation Date: 06/27/24 08:30 Actual Procedures p Left Knee Incision and Drainage(Left) - Amado oGmez MD Pending Results Patient Have Any Pending Studies at Discharge: No Discharge Instructions Given to Patient (Per Discharging Provider) Maintain knee immobilizer (KI) to prevent knee flexion while wound heals; KI may come off for personal hygiene and dressing changes but knee to remain in full extension until further instructed. Sutures to remain in until seen for follow- up visit, which should not be prior to 2 weeks post-op. If you have not been given dressing instructions already, leave the surgical dressing intact until 06/30/24, then contact Dr. Gomez' team in the orthopedics clinic for further dressing instructions. Total Time Total Time Spent Total Time Spent (In Minutes): 45 minutes Coding Level of Care Code 23219 INP/OBS DISCH >30 MIN Diagnoses Infection of left knee M00.9
[2024-06-28 11:02] VITALS: PULSE 85
--- NOTE | 2024-07-02 14:46 | Operative Report ---
PG Post Operative Report Pre & Post Diagnosis Operation Date: 06/27/24 08:30 Pre-Op Diagnosis: Left knee infection Post-Op Diagnosis: Left knee infection I identified the patient and participated in the time-out.: Yes Procedure Operation Date: 06/27/24 08:30 Actual Procedures p Left Knee Incision and Drainage(Left) - Amado Gomez MD Surgeon Amado Gomez MD Head Of Strategy Joel Esqueda Estimated Blood Loss 0 Findings Consistent with Post-Op Diagnosis Debris. Specimens Cultures, debris. Description of Procedure 1. Irrigation and debridement left anterior knee. (33221) 2. Closure of laceration, left anterior knee, intermediate repair. (88631) Patient taken the operating room and after adequate anesthesia was carefully positioned on the OR table, the left knee underwent a preprepped with removal of sutures and scrubbing of the prior laceration site. Prep and drape was performed, began the procedure with opening up the inverted V type laceration over the anterior aspect of her left knee with the uppermost portion at the inferior pole of the patella and approximately 10 cm in length total. Cultures were taken, and began the debridement process which included a limited area of skin, subcutaneous tissues down to the patellar tendon region and fascial regions of the superior aspect of the lower leg where the incision extended to. There was a pocket laterally, and is to note that there was foreign material in this region this was collected and sent to pathology. After removing what appeared to be any remaining debris, the jet lavage was then utilized for a total of 3 L, in combination with the bulb syringe approximately 3-1/2 L total of irrigation fluid was utilized. The tissue underwent jet lavage, and after completing this, vancomycin powder was placed, and repair of the laceration was performed with a combination of 2-0 and 3-0 nylon sutures. Sterile dressing was applied along with a knee immobilizer, the patient tolerated procedure well was taken to recovery room in satisfactory condition. I attest to the content of the Intraoperative Record and any orders documented therein. Any exceptions are noted below.
== END 2024-06-28 11:39 | disposition home or self-care (01) | DRG 581 ==
LOC: ED 18:08 → 3E 20:31 → SUATTDRO 20:31 → 3E 22:10